=== PATIENT | male | born 1980 | race Caucasian/White ===

== ENCOUNTER 2025-08-31 16:11 | Inpatient (IN) | payer OTHER ==
[2025-08-31 18:26] LABS: #Basophils 0.03 10x3/uL (0.0-0.2); #Eosinophils Less than 0.03 10x3/uL (0.0-0.7); #Monocytes 0.76 10x3/uL (0.11-0.59); #Neutrophils 7.03 10x3/uL (1.40-6.50); %Basophils 0.3 % (0.0-1.0); %Eosinophils 0.1 % (0.0-10.0); %Lymphocytes 19.1 % (21.0-51.0); %Monocytes 7.8 % (0.0-10.0); %Neutrophils 72.5 % (42.0-75.0); Hematocrit 40.7 % (42.0-52.0); Hemoglobin 13.6 g/dL (14.0-18.0); Mean Corpuscular Hemoglobin 33.5 pg (27.0-31.0); Mean Corpuscular Volume 100.2 fL (78.0-98.0); Platelet Count 117 10x3/uL (130-400); Red Blood Cell (RBC) Count 4.06 mill/uL (4.70-6.10); White Blood Cell (WBC) Count 9.70 10x3/uL (4.8-10.8)
[2025-08-31 18:34] LABS: Lipase 5 U/L (8-78)
[2025-08-31 18:36] LABS: ALT (SGPT) 67 U/L (Less than 45); AST (SGOT) 221 U/L (11-34); Acetaminophen Less than 10 mcg/mL (Less than 10); Albumin 3.1 g/dL (3.1-4.5); Alkaline Phosphatase 179 U/L (40-110); Anion Gap 23 mmol/L (10-20); BUN (Urea Nitrogen) 45 mg/dL (8.9-20.6); Bilirubin, Total 3.1 mg/dL (0.3-1.2); Calc. Creatinine Clearance 0 mL/min (70-130); Calcium 8.7 mg/dL (7.8-10.44); Carbon Dioxide 20 mmol/L (22-29); Chloride 101 mmol/L (98-107); Globulin 5.4 g/dL (2.4-3.5); Glucose 162 mg/dL (70-105); Potassium 6.0 mmol/L (3.5-5.1); Salicylate Less than 8.0 mg/dL (Less than 8.0); Sodium 138 mmol/L (136-145)
[2025-08-31 18:47] LABS: Anisocytosis SLIGHT = 6-15 cells HPF (0-5); Burr Cells SLIGHT = 2-5 cells HPF (0-1); Macrocytosis SLIGHT = 6-15 cells HPF (0-5); Platelet Adequacy Comment Platelets Decreased; Poikilocytosis SLIGHT = 6-15 cells HPF (0-5); Polychromasia SLIGHT = 2-3 cells HPF (0-2)
[2025-08-31] MEDS ORDERED: Calcium Chloride 1 GM/10 ML Abboject SYRINGE ONE (20:10)
[2025-08-31] MEDS ORDERED: Lactulose 20 GM (30 mL) UDCUP ONE (20:10)
[2025-08-31] MEDS ORDERED: Dextrose 50% Abboject 50 ML SYRINGE ONE (20:16)
[2025-08-31] MEDS ORDERED: Sodium Bicarb 50 MEQ/50 ML Abboject 8.4% SYRINGE ONE (20:16)
[2025-08-31] MEDS ORDERED: Acetaminophen 325 MG TAB PO PRN (20:41)
[2025-08-31] MEDS ORDERED: Ondansetron PF 4 MG/2 ML Vial IVP PRN (20:41)
[2025-08-31] MEDS ORDERED: Glucagon 1 MG/ML KIT IM PRN (22:23)
[2025-08-31] MEDS ORDERED: Dextrose 50% Abboject 50 ML SYRINGE SLOW IVP PRN (22:23)
[2025-08-31 23:09] LABS: Anion Gap 20 mmol/L (10-20); BUN (Urea Nitrogen) 54 mg/dL (8.9-20.6); Calc. Creatinine Clearance 0 mL/min (70-130); Calcium 9.6 mg/dL (7.8-10.44); Carbon Dioxide 20 mmol/L (22-29); Chloride 104 mmol/L (98-107); Glucose 160 mg/dL (70-105); Potassium 5.0 mmol/L (3.5-5.1); Sodium 139 mmol/L (136-145)
[2025-08-31] MEDS: LOKELMA 10 GM PACKET PO SCH (23:51)
[2025-08-31] MEDS: Lactulose 10 GM/15 ML Oral Solution PR SCH (23:52)
[2025-08-31] MEDS: Sodium Bicarbonate Tab 325 MG TAB PO SCH (23:53)
[2025-09-01] MEDS: Lactulose 20 GM (30 mL) UDCUP PO SCH ×2 (01:28→09:01)
[2025-09-01 04:26] LABS: Bacteria/HPF None Seen HPF (None Seen); CAUTI Indications for Culture Alt mental st,lethar; Glucose, Urine (Dipstick) Normal (Negative); Leukocyte Negative Leu/uL (Negative); Protein, Urine (Dipstick) Negative (Neg-Trace); RBC/HPF None Seen HPF (0-3); Specific Gravity, Urine 1.020 (1.002-1.036); WBC/HPF None Seen HPF (0-3)
[2025-09-01 04:28] LABS: Urine Culture Reflex No No
[2025-09-01 04:51] LABS: #Basophils Less than 0.03 10x3/uL (0.0-0.2); #Eosinophils 0.03 10x3/uL (0.0-0.7); #Monocytes 0.98 10x3/uL (0.11-0.59); #Neutrophils 6.72 10x3/uL (1.40-6.50); %Basophils 0.2 % (0.0-1.0); %Eosinophils 0.3 % (0.0-10.0); %Lymphocytes 24.5 % (21.0-51.0); %Monocytes 9.5 % (0.0-10.0); %Neutrophils 65.2 % (42.0-75.0); Hematocrit 37.2 % (42.0-52.0); Hemoglobin 12.5 g/dL (14.0-18.0); Mean Corpuscular Hemoglobin 33.6 pg (27.0-31.0); Mean Corpuscular Volume 100.0 fL (78.0-98.0); Platelet Count 121 10x3/uL (130-400); Red Blood Cell (RBC) Count 3.72 mill/uL (4.70-6.10); White Blood Cell (WBC) Count 10.30 10x3/uL (4.8-10.8)
[2025-09-01 04:52] LABS: Sodium, Urine 59 mmol/L (Not Available); Urea Nitrogen, Random Urine 1183 mg/dl
[2025-09-01 05:14] LABS: ALT (SGPT) 63 U/L (Less than 45); AST (SGOT) 209 U/L (11-34); Albumin 2.8 g/dL (3.1-4.5); Alkaline Phosphatase 171 U/L (40-110); Anion Gap 25 mmol/L (10-20); BUN (Urea Nitrogen) 53 mg/dL (8.9-20.6); Bilirubin, Total 3.2 mg/dL (0.3-1.2); Calc. Creatinine Clearance 49 mL/min (70-130); Calcium 8.8 mg/dL (7.8-10.44); Carbon Dioxide 19 mmol/L (22-29); Chloride 101 mmol/L (98-107); Globulin 5.1 g/dL (2.4-3.5); Glucose 250 mg/dL (70-105); Magnesium 1.4 mg/dL (1.6-2.6); Potassium 5.6 mmol/L (3.5-5.1); Sodium 139 mmol/L (136-145)
[2025-09-01] MEDS: Albumin 25% 25 GM (100 mL) BOT IVPB SCH ×2 (08:59→16:06)
[2025-09-01] MEDS: Magnesium Sulfate In Water 4 GM in Premix 1 BAG IVPB SCH (08:59)
[2025-09-01] MEDS: Carvedilol 3.125 MG TAB PO SCH (08:59)
[2025-09-01] MEDS: Insulin Glargine 30 UNITS/0.3 ML VIAL SC SCH (09:00)
[2025-09-01] MEDS ORDERED: Spironolactone 25 MG TAB PO SCH (09:00)
[2025-09-01] MEDS: Sertraline 100 MG TAB PO SCH (09:01)
[2025-09-01] MEDS: Rifaximin 550 MG TAB PO SCH (09:01)
[2025-09-01] MEDS: hydrALAZINE 20 MG/ML VIAL SLOW IVP PRN (10:24)
[2025-09-01 10:55] LABS: Cocaine Metabolite Screen Negative (Negative); THC/Cannabinoid Screen Negative (Negative); Tricyclic Screen Negative (Negative)
[2025-09-01] MEDS: Lactulose 10 GM/15 ML Oral Solution PR SCH (12:08)
[2025-09-01 16:54] LABS: ALT (SGPT) 58 U/L (Less than 45); AST (SGOT) 170 U/L (11-34); Albumin 3.3 g/dL (3.1-4.5); Alkaline Phosphatase 155 U/L (40-110); Anion Gap 20 mmol/L (10-20); BUN (Urea Nitrogen) 60 mg/dL (8.9-20.6); Bilirubin, Total 3.6 mg/dL (0.3-1.2); Calc. Creatinine Clearance 46 mL/min (70-130); Calcium 8.8 mg/dL (7.8-10.44); Carbon Dioxide 26 mmol/L (22-29); Chloride 98 mmol/L (98-107); Globulin 4.6 g/dL (2.4-3.5); Glucose 226 mg/dL (70-105); Magnesium 2.6 mg/dL (1.6-2.6); Potassium 4.3 mmol/L (3.5-5.1); Sodium 140 mmol/L (136-145)
[2025-09-01 16:58] LABS: #Basophils Less than 0.03 10x3/uL (0.0-0.2); #Eosinophils Less than 0.03 10x3/uL (0.0-0.7); #Monocytes 1.00 10x3/uL (0.11-0.59); #Neutrophils 6.27 10x3/uL (1.40-6.50); %Basophils 0.2 % (0.0-1.0); %Eosinophils 0.1 % (0.0-10.0); %Lymphocytes 25.2 % (21.0-51.0); %Monocytes 10.2 % (0.0-10.0); %Neutrophils 64.1 % (42.0-75.0); Hematocrit 35.7 % (42.0-52.0); Hemoglobin 12.1 g/dL (14.0-18.0); Mean Corpuscular Hemoglobin 33.7 pg (27.0-31.0); Mean Corpuscular Volume 99.4 fL (78.0-98.0); Platelet Count 105 10x3/uL (130-400); Red Blood Cell (RBC) Count 3.59 mill/uL (4.70-6.10); White Blood Cell (WBC) Count 9.79 10x3/uL (4.8-10.8)
[2025-09-02 05:22] LABS: #Basophils 0.03 10x3/uL (0.0-0.2); #Eosinophils 0.06 10x3/uL (0.0-0.7); #Monocytes 0.47 10x3/uL (0.11-0.59); #Neutrophils 3.29 10x3/uL (1.40-6.50); %Basophils 0.5 % (0.0-1.0); %Eosinophils 1.0 % (0.0-10.0); %Lymphocytes 33.7 % (21.0-51.0); %Monocytes 8.1 % (0.0-10.0); %Neutrophils 56.7 % (42.0-75.0); Hematocrit 32.0 % (42.0-52.0); Hemoglobin 10.9 g/dL (14.0-18.0); Mean Corpuscular Hemoglobin 34.3 pg (27.0-31.0); Mean Corpuscular Volume 100.6 fL (78.0-98.0); Platelet Count 81 10x3/uL (130-400); Red Blood Cell (RBC) Count 3.18 mill/uL (4.70-6.10); White Blood Cell (WBC) Count 5.81 10x3/uL (4.8-10.8)
[2025-09-02 05:31] LABS: ALT (SGPT) 49 U/L (Less than 45); AST (SGOT) 139 U/L (11-34); Albumin 3.4 g/dL (3.1-4.5); Alkaline Phosphatase 128 U/L (40-110); Anion Gap 18 mmol/L (10-20); BUN (Urea Nitrogen) 57 mg/dL (8.9-20.6); Bilirubin, Total 3.5 mg/dL (0.3-1.2); Calc. Creatinine Clearance 52 mL/min (70-130); Calcium 8.7 mg/dL (7.8-10.44); Carbon Dioxide 32 mmol/L (22-29); Chloride 97 mmol/L (98-107); Globulin 3.8 g/dL (2.4-3.5); Glucose 206 mg/dL (70-105); Magnesium 2.2 mg/dL (1.6-2.6); Potassium 3.7 mmol/L (3.5-5.1); Sodium 143 mmol/L (136-145)
[2025-09-02 11:03] VITALS: BMI 25.6
[2025-09-03 05:33] LABS: #Basophils Less than 0.03 10x3/uL (0.0-0.2); #Eosinophils 0.06 10x3/uL (0.0-0.7); #Monocytes 0.43 10x3/uL (0.11-0.59); #Neutrophils 3.23 10x3/uL (1.40-6.50); %Basophils 0.4 % (0.0-1.0); %Eosinophils 1.1 % (0.0-10.0); %Lymphocytes 31.2 % (21.0-51.0); %Monocytes 7.9 % (0.0-10.0); %Neutrophils 59.2 % (42.0-75.0); Hematocrit 36.1 % (42.0-52.0); Hemoglobin 12.1 g/dL (14.0-18.0); Mean Corpuscular Hemoglobin 33.8 pg (27.0-31.0); Mean Corpuscular Volume 100.8 fL (78.0-98.0); Platelet Count 72 10x3/uL (130-400); Red Blood Cell (RBC) Count 3.58 mill/uL (4.70-6.10); White Blood Cell (WBC) Count 5.45 10x3/uL (4.8-10.8)
[2025-09-03 05:36] LABS: ALT (SGPT) 54 U/L (Less than 45); AST (SGOT) 163 U/L (11-34); Albumin 3.2 g/dL (3.1-4.5); Alkaline Phosphatase 130 U/L (40-110); Anion Gap 14 mmol/L (10-20); BUN (Urea Nitrogen) 37 mg/dL (8.9-20.6); Bilirubin, Total 2.6 mg/dL (0.3-1.2); CK (CPK) 1104 U/L (30-200); Calc. Creatinine Clearance 77 mL/min (70-130); Calcium 8.4 mg/dL (7.8-10.44); Carbon Dioxide 32 mmol/L (22-29); Chloride 107 mmol/L (98-107); Globulin 3.8 g/dL (2.4-3.5); Glucose 74 mg/dL (70-105); Magnesium 1.8 mg/dL (1.6-2.6); Potassium 3.1 mmol/L (3.5-5.1); Sodium 150 mmol/L (136-145)
[2025-09-03] MEDS ORDERED: Potassium Chloride 20 MEQ in Premix 1 BAG IVPB SCH (08:00)
[2025-09-03] MEDS: Potassium Phosphate 30 MMOL in Sodium Chloride 0.9% 250 ML 250 ML IVPB SCH (09:58)
[2025-09-03] MEDS: Melatonin 3 MG TAB PO PRN (23:51)
[2025-09-04 04:10] LABS: #Basophils Less than 0.03 10x3/uL (0.0-0.2); #Eosinophils 0.09 10x3/uL (0.0-0.7); #Monocytes 0.39 10x3/uL (0.11-0.59); #Neutrophils 2.61 10x3/uL (1.40-6.50); %Basophils 0.4 % (0.0-1.0); %Eosinophils 1.9 % (0.0-10.0); %Lymphocytes 33.5 % (21.0-51.0); %Monocytes 8.3 % (0.0-10.0); %Neutrophils 55.9 % (42.0-75.0); Hematocrit 36.3 % (42.0-52.0); Hemoglobin 11.6 g/dL (14.0-18.0); Mean Corpuscular Hemoglobin 33.4 pg (27.0-31.0); Mean Corpuscular Volume 104.6 fL (78.0-98.0); Platelet Count 66 10x3/uL (130-400); Red Blood Cell (RBC) Count 3.47 mill/uL (4.70-6.10); White Blood Cell (WBC) Count 4.68 10x3/uL (4.8-10.8)
[2025-09-04 04:31] LABS: ALT (SGPT) 50 U/L (Less than 45); AST (SGOT) 153 U/L (11-34); Albumin 2.9 g/dL (3.1-4.5); Alkaline Phosphatase 123 U/L (40-110); Anion Gap 13 mmol/L (10-20); BUN (Urea Nitrogen) 25 mg/dL (8.9-20.6); Bilirubin, Total 2.5 mg/dL (0.3-1.2); CK (CPK) 670 U/L (30-200); Calc. Creatinine Clearance 101 mL/min (70-130); Calcium 8.1 mg/dL (7.8-10.44); Carbon Dioxide 26 mmol/L (22-29); Chloride 111 mmol/L (98-107); Globulin 3.7 g/dL (2.4-3.5); Glucose 73 mg/dL (70-105); Magnesium 1.5 mg/dL (1.6-2.6); Potassium 3.5 mmol/L (3.5-5.1); Sodium 146 mmol/L (136-145)
[2025-09-04 04:37] LABS: Macrocytosis SLIGHT = 6-15 cells HPF (0-5); Platelet Adequacy Comment Platelets Decreased
[2025-09-04] MEDS: Magnesium Sulfate In Water 4 GM in Premix 1 BAG IVPB SCH (08:56)
[2025-09-04] MEDS: Potassium Phosphate 30 MMOL in Sodium Chloride 0.9% 250 ML 250 ML IVPB SCH (08:56)
[2025-09-05 05:14] LABS: ALT (SGPT) 49 U/L (Less than 45); AST (SGOT) 134 U/L (11-34); Albumin 2.7 g/dL (3.1-4.5); Alkaline Phosphatase 119 U/L (40-110); Anion Gap 9 mmol/L (10-20); BUN (Urea Nitrogen) 19 mg/dL (8.9-20.6); Bilirubin, Total 2.3 mg/dL (0.3-1.2); Calc. Creatinine Clearance 124 mL/min (70-130); Calcium 7.7 mg/dL (7.8-10.44); Carbon Dioxide 22 mmol/L (22-29); Cardiac Risk 5.9 (Less than 4.5); Chloride 109 mmol/L (98-107); Cholesterol 59 mg/dl (< 200 Desired); Globulin 3.7 g/dL (2.4-3.5); Glucose 104 mg/dL (70-105); HDL Cholesterol 10 mg/dL (>60 Neg Risk); LDL Cholesterol, Calculated 33 mg/dL; Magnesium 1.7 mg/dL (1.6-2.6); Potassium 4.0 mmol/L (3.5-5.1); Sodium 136 mmol/L (136-145); Triglycerides 80 mg/dL (Less than 150)
[2025-09-05 05:20] VITALS: BMI 23.1
[2025-09-05 05:21] LABS: #Basophils Less than 0.03 10x3/uL (0.0-0.2); #Eosinophils 0.14 10x3/uL (0.0-0.7); #Monocytes 0.30 10x3/uL (0.11-0.59); #Neutrophils 1.68 10x3/uL (1.40-6.50); %Basophils 0.5 % (0.0-1.0); %Eosinophils 3.8 % (0.0-10.0); %Lymphocytes 41.6 % (21.0-51.0); %Monocytes 8.2 % (0.0-10.0); %Neutrophils 45.6 % (42.0-75.0); Hematocrit 34.5 % (42.0-52.0); Hemoglobin 11.3 g/dL (14.0-18.0); Mean Corpuscular Hemoglobin 33.6 pg (27.0-31.0); Mean Corpuscular Volume 102.7 fL (78.0-98.0); Platelet Count 67 10x3/uL (130-400); Red Blood Cell (RBC) Count 3.36 mill/uL (4.70-6.10); White Blood Cell (WBC) Count 3.68 10x3/uL (4.8-10.8)
[2025-09-05] MEDS: Magnesium Sulfate In Water 4 GM in Premix 1 BAG IVPB SCH (10:05)
[2025-09-05] MEDS: Ergocalciferol 1.25 MG(50,000 UNITS) CAP PO SCH (10:28)
[2025-09-05 16:26] VITALS: BP 104/54; TEMP 98
== END 2025-09-05 17:28 | DRG 441 ==
LOC: EEVIPCON 16:11 → ERS 16:11 → 2NO 20:32
PROVIDERS: ADMIT Internal Medicine; ATTEND Hospitalist
DX: K76.82 Hepatic encephalopathy (principal); E10.10 Type 1 diabetes mellitus with ketoacidosis without coma; N17.9 Acute kidney failure, unspecified; E87.0 Hyperosmolality and hypernatremia; M62.82 Rhabdomyolysis; E87.5 Hyperkalemia; K74.60 Unspecified cirrhosis of liver; E87.6 Hypokalemia; Z79.899 Other long term (current) drug therapy
CPT/HCPCS: 36415; 36416; 70450; 71045; 74018; 74176; 76705; 80053; 80061; 80306; 80307; 81003; 82010; 82043; 82140; 82306; 82550; 83036; 83690; 83735; 84100; 84300; 84443; 84540; 85025; 93005; 93976; 94760; 96361; 96374; 96375; A4217; J0360; J1815; J3475; J7030; J7050; J7070; J7999; P9047; Q0162